=== PATIENT | female | born 1995 | race Caucasian/White ===

== ENCOUNTER 2017-08-29 14:47 | Emergency (ER) | payer OTHER ==
[~2017-08-29] VITALS: Ht 160 cm; Wt 95.6 kg
[2017-08-29 14:54] VITALS: TEMP 36.6; Ht 160 cm; Wt 95.6 kg
[2017-08-29] MEDS ORDERED: SODIUM CHLORIDE 0.9% 1000ML 1,000 ML IV STA (15:12)
[2017-08-29] MEDS ORDERED: ONDANSETRON INJ 2 MG/ML 2 ML VIAL IV STA (15:12)
[2017-08-29] MEDS ORDERED: MoRPHine SULFATE 4 MG/ML 1 ML CARP\\VIAL IV STA (15:12)
[2017-08-29 15:29] LABS: PREG INTERNAL NEGATIVE QC NEG CLEAR BACKGROUND; PREG INTERNAL POSITIVE QC POS CONTROL LINE
[2017-08-29 15:41] LABS: BASO % 0.3 %; BASO ABS # 0.03 K/uL (0-0.2); COMPLETE YES; EOS % 3.9 %; HEMATOCRIT 40.3 % (37-47); IG% 0.2 %; LYMPH % 23.7 %; LYMPH ABS # 2.44 K/uL (1.2-3.4); MEAN CELL VOLUME 84.5 fL (80-100); MEAN CORPUSCULAR HEMOGLOBIN 28.7 pg (25-34); MEAN PLATELET VOLUME 11.5 fL (7.4-10.4); MONO % 10.6 %; NEUT % 61.3 %; PLATELET COUNT 244 K/uL (130-400); RED BLOOD COUNT 4.77 M/uL (4.2-5.4); WHITE BLOOD COUNT 10.29 K/uL (4.8-10.8)
[2017-08-29] MEDS ORDERED: MEDR150I19 IM (15:46)
[2017-08-29] MEDS ORDERED: LXP/20 PO (15:46)
[2017-08-29] MEDS ORDERED: VANC5CAP PO (15:46)
[2017-08-29 15:58] LABS: ALT/SGPT 33 U/L (12-78); AST/SGOT 14 U/L (15-37); BLOOD UREA NITROGEN 13 mg/dl (7-18); BUN/CREATININE RATIO 14.8 (10-20); CALCIUM 8.8 mg/dl (8.5-10.1); CARBON DIOXIDE 23 mmol/L (21-32); CHLORIDE 111 mmol/L (98-107); CREATININE 0.85 mg/dl (0.60-1.20); GLUCOSE 82 mg/dl (70-99); POTASSIUM 3.8 mmol/L (3.5-5.1); SODIUM 140 mmol/L (136-145)
[2017-08-29 16:00] LABS: ALKALINE PHOSPHATASE 87 U/L (45-117)
[2017-08-29 16:01] LABS: URINE APPEARANCE CLEAR (CLEAR); URINE BILIRUBIN NEG (NEG); URINE COLOR YELLOW; URINE EPITHELIAL CELL AUTO 0-5 /lpf (0-5); URINE NITRITE NEG (NEG); UROBILINOGEN NEG (NEG)
[2017-08-29 16:03] LABS: MANUAL MICROSCOPIC REQUIRED? NO; REVIEW REQ? NO
--- NOTE | 2017-08-29 16:09 | DIAGNOSTIC IMAGING REPORT ---
CT SCAN OF THE ABDOMEN AND PELVIS WITHOUT CONTRAST CLINICAL HISTORY: Flank pain and hematuria COMPARISON STUDY: No previous studies for comparison. TECHNIQUE: CT scan of the abdomen and pelvis was performed from the lung bases to the proximal femurs. Images are reviewed in the axial, sagittal, and coronal planes. IV contrast was not administered for this examination. A dose lowering technique was utilized adhering to the principles of ALARA. CT DOSE: 1087.78 mGycm FINDINGS: Lower chest: There are minor dependent atelectatic changes. Liver: The unenhanced liver is normal in size, contour, and attenuation. There is no intrahepatic biliary ductal dilatation. Gallbladder: Unremarkable. Spleen: Normal in size and attenuation. Pancreas: Unremarkable. Adrenal glands: Unremarkable. Kidneys: There is a 1.5 mm mid pole right renal calculus. There are punctate upper pole right renal calculi. There is mild right-sided hydronephrosis and hydroureter. There is a 2 mm calculus at the level of the right ureterovesical junction. Bowel: There are no transition zones indicate bowel obstruction. The appendix appears normal. There is no acute diverticulitis. Peritoneum: There is no intraperitoneal free air or abdominal ascites. Vasculature: The abdominal aorta is normal in course and caliber. Adenopathy: None. Pelvic viscera: The bladder, and pelvic viscera are unremarkable. Skeletal structures: No destructive osseous lesions are seen. IMPRESSION: 1. Right-sided nephrolithiasis 2. 2 mm calculus at the level of the right UVJ with secondary obstructive changes Electronically signed by: Michael Jaime M.D. 08/29/2017 4:08 PM Dictated Date/Time: 08/29/2017 4:04 PM
[2017-08-29] MEDS ORDERED: HYDR-5688 PO (16:40)
[2017-08-29 17:07] VITALS: BP 130/77; PULSE 82; O2SAT 98
--- NOTE | 2017-08-29 20:16 | EMERGENCY ROOM VISIT NOTE ---
ED Visit Note First contact with patient: 14:55 Chief Complaint: Right flank pain. History of Present Illness: Ms. Gonzales is a 21 year-old white female who ambulates into the ED accompanied by her mother complaining of right flank pain. Historically patient reports she has a history of pyelonephritis. She reports she felt like her symptoms started approximately one month ago. She reports she was seen by her PCP and after a negative renal ultrasound her urine was tested and she reports she was started on vancomycin for a staph be infection. She reports after starting the antibiotic she started feeling slightly better until last evening. She reports last evening she had an acute onset of severe pain in the right flank area. Since that time her pain has come been constant but has waxed and waned in intensity. She describes her pain as a sharp sensation located in the CVA area. She rates her discomfort 9/10. The pain is radiating into the lower back and also around the abdomen and into the pelvis area. She is not identified any aggravating or alleviating factors related to the pain. She has not taken any medications for pain prior to arrival at the hospital. Associated with her pain she reports she has feelings of incomplete voiding after urination. Patient denies fevers, chills, sweats, skin eruptions, skin color changes, upper respiratory tract symptoms, shortness of breath, chest pain, nausea, vomiting, diarrhea, constipation, rectal bleeding, black/tarry stools, urinary frequency, urinary urge, hematuria, vaginal bleeding, vaginal discharge. Review of Systems: As noted above in history of present illness. All body systems were reviewed and found to be negative as noted above. Past Medical History: As previously noted and Crohn's disease. Current Medications: Vancomycin, escitalopram, medroxyprogesterone. Allergies to Medications: Penicillin. Social History: Patient is currently employed; she lives with her mother and feels safe in her home environment; she denies tobacco use and admits to alcohol use. Physical Examination: Vital Signs: Date Time Temp Pulse Resp B/P (MAP) Pulse Ox O2 Delivery O2 Flow Rate FiO2 08/29/17 17:07 82 18 130/77 98 08/29/17 15:52 89 18 134/76 100 Room Air 08/29/17 14:54 36.6 93 18 140/87 100 Room Air GENERAL: 21-year-old female in moderate distress due to pain, nontoxic-appearing , afebrile and hemodynamically stable. Patient tearful and anxious. NEUROLOGICAL: Awake, alert and oriented to person, place and time. Answering questions appropriately and following commands. Normal gait. Good hand eye coordination. SKIN: Warm, dry and pink. No soft tissue eruptions or trauma noted. HEENT: Atraumatic and normocephalic. PERRLA. Sclera white and conjunctiva pink. Speech normal. No lymphadenopathy. Trachea midline. No jugular venous distention. BACK: No tenderness over the bony spine. No tenderness throughout the thoracic or lumbar paraspinous musculature. No CVA tenderness. Full range of motion of the lumbar spine. THORAX: Lungs sounds are clear to auscultation and equal bilaterally with symmetrical chest wall. No wheezing, rales or rhonchi. No crepitus, tenderness , subcutaneous air or deformities noted. HEART: Regular rate and rhythm. No gallops, rubs or murmurs are appreciated. ABDOMEN: Flat, soft and nontender. Positive bowel sounds in all quadrants. No guarding, rigidity or organomegaly. EXTREMITIES: Moves all extremities well on command and with purpose. All distal neurovascular statuses are intact and equal bilaterally. ED Course: Patient is assessed as noted above. Laboratory Testing: Test 08/29/17 00:00 08/29/17 15:10 08/29/17 15:25 Range/Units Urine Color YELLOW Urine Appearance CLEAR CLEAR Urine pH 6.0 4.5-7.5 Urine Specific [place] 1.010 1.000-1.030 Urine Protein NEG NEG Urine Glucose (UA) NEG NEG Urine Ketones NEG NEG Urine Occult Blood 3+ NEG Urine Nitrite NEG NEG Urine Bilirubin NEG NEG Urine Urobilinogen NEG NEG Urine Leukocyte Esterase NEG NEG Urine WBC (Auto) 1-5 0-5 /hpf Urine RBC (Auto) >30 0-4 /hpf Urine Hyaline Casts (Auto) 1-5 0-5 /lpf Urine Epithelial Cells (Auto) 0-5 0-5 /lpf Urine Bacteria (Auto) NEG NEG Urine Test NEG NEG White Blood Count 10.29 4.8-10.8 K/uL Red Blood Count 4.77 4.2-5.4 M/uL Hemoglobin 13.7 12.0-16.0 g/dL Hematocrit 40.3 37-47 % Mean Corpuscular Volume 84.5 80-100 fL Mean Corpuscular Hemoglobin 28.7 25-34 pg Mean Corpuscular Hemoglobin Concent 34.0 32-36 g/dl Platelet Count 244 130-400 K/uL Mean Platelet Volume 11.5 7.4-10.4 fL Neutrophils (%) (Auto) 61.3 % Lymphocytes (%) (Auto) 23.7 % Monocytes (%) (Auto) 10.6 % Eosinophils (%) (Auto) 3.9 % Basophils (%) (Auto) 0.3 % Neutrophils # (Auto) 6.31 1.4-6.5 K/uL Lymphocytes # (Auto) 2.44 1.2-3.4 K/uL Monocytes # (Auto) 1.09 0.11-0.59 K/uL Eosinophils # (Auto) 0.40 0-0.5 K/uL Basophils # (Auto) 0.03 0-0.2 K/uL RDW Standard Deviation 36.7 36.4-46.3 fL RDW Coefficient of Variation 11.8 11.5-14.5 % Immature Granulocyte % (Auto) 0.2 % Immature Granulocyte # (Auto) 0.02 0.00-0.02 K/uL Sodium Level 140 136-145 mmol/L Potassium Level 3.8 3.5-5.1 mmol/L Chloride Level 111 98-107 mmol/L Carbon Dioxide Level 23 21-32 mmol/L Anion Gap 6.0 3-11 mmol/L Blood Urea Nitrogen 13 7-18 mg/dl Creatinine 0.85 0.60-1.20 mg/dl Est Creatinine Clear Calc Drug Dose 113.2 ml/min Estimated GFR () 111.9 Estimated GFR (Non- 96.6 BUN/Creatinine Ratio 14.8 10-20 Random Glucose 82 70-99 mg/dl Calcium Level 8.8 8.5-10.1 mg/dl Total Bilirubin 0.3 0.2-1 mg/dl Direct Bilirubin < 0.1 0-0.2 mg/dl Aspartate Amino Transf (AST/SGOT) 14 15-37 U/L Alanine Aminotransferase (ALT/SGPT) 33 12-78 U/L Alkaline Phosphatase 87 45-117 U/L Total Protein 7.0 6.4-8.2 gm/dl Albumin 3.7 3.4-5.0 gm/dl Lipase 242 73-393 U/L Noncontrast Abdominal/Pelvic CT: Shows a 2 mm calculus at the level of the UVJ with secondary obstructive changes and additional right sided nephrolithiasis. Patient was hydrated with normal saline and she received 4 mg of morphine IV and 4 mg of Zofran IV. Patient was reassessed multiple times during her stay in the emergency department. Patient's case was reviewed with Dr. Coronado; we agreed on diagnostic approach , treatment, disposition and plan. Patient was educated about today's findings and instructed on her treatment plan ; she verbalized understanding and agreement with this plan. Clinical Impression: Right ureter calculus. Decision-Making: Initially my differential diagnosis I considered ureter calculus, ovarian cyst rupture, ovarian torsion, ectopic , appendicitis and other causes. Disposition: Patient discharged home in stable condition accompanied by her mother; prior to departure she was reassessed and subjectively reported she was feeling better and rated her discomfort 4/10. Plan: Patient is placed on a sliding pain medication scale of ibuprofen, acetaminophen and Tracy; she was given appropriate narcotic precautions and her name was checked in the [facility] and no red flags were noted. Patient was encouraged to stay well-hydrated and strain all urine and collect all stones for analysis. Patient is encouraged to follow-up with urology for definitive care and treatment. Patient was encouraged return ED for worsening/uncontrolled pain, fevers, urinary burning, gross hematuria or any new/concerning symptoms
== END 2017-08-29 17:08 | disposition home or self-care (01) ==
LOC: C.EDB 14:48 → C.EDA 17:08
DX: N20.1 Calculus of ureter (principal); K50.90 Crohn's disease, unspecified, without complications